=== PATIENT | female | born 1960 | race Caucasian/White ===

== ENCOUNTER 2019-04-01 19:17 | Emergency (ER) | payer OTHER ==
[2019-04-01 20:27] LABS: Absolute Lymphocytes (CBC) 2.3 K/uL (0.7-4.9); Basophils % 0.6 % (0-1.3); Eosinophils % 2.1 % (0-4.4); Hematocrit 46.4 % (36.0-45.0); Lymphocytes % 22.6 % (15.3-44.8); MPV 9.2 fL (7.6-11.3); Monocytes % 7.2 % (3.3-12.3); RBC Red Blood Cell Count 4.86 M/uL (3.86-4.86)
[2019-04-01 20:30] LABS: Urine Blood NEGATIVE (NEG); Urine Glucose NEGATIVE (NEG); Urine Protein 2+ (NEG); Urine Specific Gravity >1.030 (1.005-1.030)
[2019-04-01] MEDS ORDERED: ASPIRIN 81 MG CHEWABLE TABLET ONE (20:31)
[2019-04-01] MEDS ORDERED: FENTANYL CITR 100 MCG/2 ML ONE (20:32)
[2019-04-01 20:35] LABS: Protime INR 0.9
[2019-04-01 20:43] LABS: Urine Bacteria <20 /HPF (<20); Urine RBC <5 /HPF (NONE SEEN)
[2019-04-01 20:44] LABS: Calcium Oxalate Crystals- Ur MANY (NONE SEEN); Urine Culture Reflex Order NOT NEEDED; Urine Mucus 2+ /HPF (NONE SEEN)
[2019-04-01 20:49] LABS: ALT/SGPT 22 U/L (12-78); AST/SGOT 9 U/L (15-37); Albumin 3.6 g/dL (3.4-5.0); Alkaline Phosphatase 84 U/L (45-117); BUN Blood Urea Nitrogen 13 mg/dL (7-18); Bicarbonate 30 mmol/L (21-32); Bilirubin Direct < 0.1 mg/dL (0-0.2); Bilirubin Total 0.3 mg/dL (0.2-1.0); Glucose Level 184 mg/dL (74-106); Lipase 67 U/L (73-393); Magnesium 2.2 mg/dL (1.8-2.4); NT PRO-BNP 193 pg/mL (<125); Potassium 3.6 mmol/L (3.5-5.1); Protein, Total 6.7 g/dL (6.4-8.2); Sodium Level 141 mmol/L (136-145); Troponin (Emerg Dept Use Only) < 0.02 ng/mL (0.0-0.045)
--- NOTE | 2019-04-01 22:23 | ER ---
Nurse's Notes [facility] Name: Sushma Guy Age: 58 yrs Sex: Female : 1960 Arrival Date: 04/01/2019 Time: 19:19 Bed 28 Private MD: Piyush Abreu Diagnosis: Dehydration;Upper abdominal pain, unspecified Presentation: 04/01 19:30 Presenting complaint: Patient states: "I am having abdominal pain. I am pretty sure it jd3 is my gal bladder. I had a problem with it in the past, but I never followed up with a doctor because it started to feel better.". Transition of care: patient was not received from another setting of care. Onset of symptoms was April 01, 2019. Risk Assessment: Do you want to hurt yourself or someone else? Patient reports no desire to harm self or others. Initial Sepsis Screen: Does the patient meet any 2 criteria? No. Patient's initial sepsis screen is negative. Does the patient have a suspected source of infection? No. Patient's initial sepsis screen is negative. Care prior to arrival: None. 19:30 Method Of Arrival: Ambulatory jd3 19:30 Acuity: YARITZA 3 jd3 Historical: - Allergies: 19:36 No Known Allergies; jd3 - Home Meds: 19:36 Metoprolol Tartrate Oral [Active]; Lyrica oral oral [Active]; hydrocodone [Active]; jd3 Tramadol Oral [Active]; citalopram oral [Active]; - PMHx: 19:36 Rheumatoid Arthritis; Hypertension; heart problem; COPD; jd3 - PSHx: 19:36 triple laminectomy; jd3 - Immunization history:: Adult Immunizations up to date. - Social history:: Smoking status: Patient uses tobacco products, smokes three packs cigarettes per day. - Ebola Screening: : Patient negative for fever greater than or equal to 101.5 degrees Fahrenheit, and additional compatible Ebola Virus Disease symptoms. Screenin:45 Abuse screen: Denies threats or abuse. Denies injuries from another. Nutritional ca1 screening: No deficits noted. Tuberculosis screening: No symptoms or risk factors identified. Fall Risk IV access (20 points). Assessment: 19:45 General: Appears in no apparent distress. comfortable, Behavior is calm, cooperative, ca1 appropriate for age. Pain: Complains of pain in posterior aspect of right lateral abdomen, anterior aspect of right lateral abdomen and right upper quadrant Pain does not radiate. Pain currently is 7 out of 10 on a pain scale. Pain began 6-8 months ago. Worst for the past month and this past 4 days. Neuro: Level of Consciousness is awake, alert, obeys commands, Oriented to person, place, time, situation. Cardiovascular: Heart tones S1 S2 present Capillary refill < 3 seconds Patient's skin is warm and dry. Pulses are all present. Respiratory: Airway is patent Respiratory effort is even, unlabored, Respiratory pattern is regular, symmetrical, Breath sounds are clear bilaterally. GI: Abdomen is round non-distended, Bowel sounds present X 4 quads. Abdomen is tender to palpation in posterior aspect of right lateral abdomen, anterior aspect of right lateral abdomen and right upper quadrant Reports nausea, vomiting. : Reports difficulty urinating and decrease in the number of voids per day even with increase oral intake, as reported by pt. EENT: No deficits noted. No signs and/or symptoms were reported regarding the EENT system. Derm: Skin is intact, is healthy with good turgor, Skin is pink, warm \\T\\ dry. Musculoskeletal: Circulation, motion, and sensation intact. Capillary refill < 3 seconds, Range of motion: intact in all extremities. 20:39 Reassessment: Patient appears in no apparent distress at this time. Patient and/or ca1 family updated on plan of care and expected duration. Pain level reassessed. Patient is alert, oriented x 3, equal unlabored respirations, skin warm/dry/pink. 21:17 Reassessment: Patient is alert, oriented x 3, equal unlabored respirations, skin bb warm/dry/pink. pt returned from CT scan, is resting quietly, no complaints, awaiting results. 22:04 Reassessment: pt appears to be sleeping, eyes closed, resp unlabored, arouses easily bb awaiting CT results. 22:46 Reassessment: Patient is alert, oriented x 3, equal unlabored respirations, skin bb warm/dry/pink. pt verbalized understanding of and agrees to plan of care discharge instructions given pt ambulated with steady gait to exit. Patient states feeling better. Vital Signs: 19:36 BP 131 / 64; Pulse 90; Resp 17 S; Temp 98.2(O); Pulse Ox 99% on R/A; Weight 71.67 kg jd3 (R); Height 5 ft. 10 in. (177.80 cm) (R); Pain 8/10; 20:39 BP 126 / 71; Pulse 75; Resp 18 S; Pulse Ox 97% on R/A; ca1 22:04 BP 108 / 76; Pulse 75; Resp 19 S; Pulse Ox 97% on R/A; bb 22:47 BP 108 / 75; Pulse 73; Resp 16 S; Temp 98.2(O); Pulse Ox 100% on R/A; bb 19:36 Body Mass Index 22.67 (71.67 kg, 177.80 cm) jd3 ED Course: 19:19 Patient arrived in ED. es 19:19 Piyush Abreu MD is Private Physician. es 19:24 [facility]op[facility] F[facility]C [facility]. snw 19:24 Joanna French MD is Attending Physician. snw 19:32 Triage completed. jd3 19:36 Arm band placed on. jd3 19:45 Patient has correct armband on for positive identification. Placed in gown. Bed in low ca1 position. Call light in reach. Side rails up X 1. potline monitor on. Pulse ox on. NIBP on. Warm blanket given. 20:00 No provider procedures requiring assistance completed. Inserted saline lock: 20 gauge ca1 in left antecubital area, using aseptic technique. Blood collected. 20:14 Regine Prado, RN is Primary Nurse. ca1 20:42 IV discontinued, intact, bleeding controlled, No redness/swelling at site. Pressure bb dressing applied. 20:[address] nj 21:06 CT completed. Patient tolerated procedure well. Patient moved back from PR. nj 21:27 CT Chest For PE Angio In Process Unspecified. EDMS 22:21 Piyush Abreu MD is Referral Physician. snw Administered Medications: 20:10 Drug: fentaNYL (PF) 50 mcg Route: IVP; Site: left antecubital; ca1 21:18 Follow up: Response: Pain is decreased bb 20:10 Drug: Aspirin Chewable Tablet 324 mg Route: PO; ca1 21:18 Follow up: Response: No adverse reaction bb Outcome: 22:22 Discharge ordered by . snw 22:48 Discharged to home ambulatory. bb 22:48 Condition: stable 22:48 Discharge instructions given to patient, Instructed on discharge instructions, follow up and referral plans. medication usage, Demonstrated understanding of instructions, follow-up care, medications, Prescriptions given X 2. 22:49 Patient left the ED. bb Signatures: Dispatcher [employer] EDMS Mei Chopra, ASSOCIATE MERCHANDISE PLANNER-C ASSOCIATE MERCHANDISE PLANNER-Csnw Jessa Castrejon Brenda RN RN Troy Vogt Jonathon, RN RN jd3 Regine Prado RN RN ca1
--- NOTE | 2019-04-01 22:24 | EDPHYS ---
Physician Documentation [facility] Name: Sushma Guy Age: 58 yrs Sex: Female : 1960 Arrival Date: 04/01/2019 Time: 19:19 Bed 28 Private MD: Piyush Abreu ED Physician Joanna French HPI: 04/01 19:42 This 58 yrs old Female presents to ER via Ambulatory with complaints of snw Nausea, Flank Pain, Abdominal Pain. 19:42 The patient presents with abdominal pain in the right upper quadrant. Onset: The snw symptoms/episode began/occurred gradually, 8 month(s) ago, and became persistent. The symptoms radiate to right lower anterior ribs. Associated signs and symptoms: Pertinent positives: nausea. The symptoms are described as constant, shooting, stabbing. Severity of pain: At its worst the pain was severe. It is unknown whether or not the patient has had similar symptoms in the past. The patient has not recently seen a physician, the patient's primary care provider is Dr. Abreu. pt states she is a 3ppd smoker. Historical: - Allergies: 19:36 No Known Allergies; jd3 - Home Meds: 19:36 Metoprolol Tartrate Oral [Active]; Lyrica oral oral [Active]; hydrocodone [Active]; jd3 Tramadol Oral [Active]; citalopram oral [Active]; - PMHx: 19:36 Rheumatoid Arthritis; Hypertension; heart problem; COPD; jd3 - PSHx: 19:36 triple laminectomy; jd3 - Immunization history:: Adult Immunizations up to date. - Social history:: Smoking status: Patient uses tobacco products, smokes three packs cigarettes per day. - Ebola Screening: : Patient negative for fever greater than or equal to 101.5 degrees Fahrenheit, and additional compatible Ebola Virus Disease symptoms. ROS: 19:40 Constitutional: Negative for fever, chills, and weight loss, Eyes: Negative for injury, snw pain, redness, and discharge, ENT: Negative for injury, pain, and discharge, Neck: Negative for injury, pain, and swelling, Cardiovascular: Negative for chest pain, palpitations, and edema, Back: Negative for injury and pain, : Negative for injury, bleeding, discharge, and swelling, MS/Extremity: Negative for injury and deformity, Skin: Negative for injury, rash, and discoloration, Neuro: Negative for headache, weakness, numbness, tingling, and seizure. 19:40 Respiratory: Positive for pain to lower right ribs. 19:40 Abdomen/GI: Positive for pain to upper right abd. Exam: 19:39 Constitutional: This is a well developed, well nourished patient who is awake, alert, snw and in no acute distress. Head/Face: Normocephalic, atraumatic. Eyes: Pupils equal round and reactive to light, extra-ocular motions intact. Lids and lashes normal. Conjunctiva and sclera are non-icteric and not injected. Cornea within normal limits. Periorbital areas with no swelling, redness, or edema. ENT: Nares patent. No nasal discharge, no septal abnormalities noted. Tympanic membranes are normal and external auditory canals are clear. Oropharynx with no redness, swelling, or masses, exudates, or evidence of obstruction, uvula midline. Mucous membranes moist. Neck: Trachea midline, no thyromegaly or masses palpated, and no cervical lymphadenopathy. Supple, full range of motion without nuchal rigidity, or vertebral point tenderness. No Meningismus. Chest/axilla: Normal chest wall appearance and motion. Nontender with no deformity. No lesions are appreciated. Cardiovascular: Regular rate and rhythm with a normal S1 and S2. No gallops, murmurs, or rubs. Normal PMI, no JVD. No pulse deficits. Respiratory: Lungs have equal breath sounds bilaterally, clear to auscultation and percussion. No rales, rhonchi or wheezes noted. No increased work of breathing, no retractions or nasal flaring. Back: No spinal tenderness. No costovertebral tenderness. Full range of motion. Skin: Warm, dry with normal turgor. Normal color with no rashes, no lesions, and no evidence of cellulitis. MS/ Extremity: Pulses equal, no cyanosis. Neurovascular intact. Full, normal range of motion. Neuro: Awake and alert, GCS 15, oriented to person, place, time, and situation. Cranial nerves II-XII grossly intact. Motor strength 5/5 in all extremities. Sensory grossly intact. Cerebellar exam normal. Normal gait. Psych: Awake, alert, with orientation to person, place and time. Behavior, mood, and affect are within normal limits. 19:39 Abdomen/GI: Inspection: abdomen appears normal, Bowel sounds: normal, Palpation: moderate abdominal tenderness, severe abdominal tenderness, in the right upper quadrant. Vital Signs: 19:36 BP 131 / 64; Pulse 90; Resp 17 S; Temp 98.2(O); Pulse Ox 99% on R/A; Weight 71.67 kg jd3 (R); Height 5 ft. 10 in. (177.80 cm) (R); Pain 8/10; 20:39 BP 126 / 71; Pulse 75; Resp 18 S; Pulse Ox 97% on R/A; ca1 22:04 BP 108 / 76; Pulse 75; Resp 19 S; Pulse Ox 97% on R/A; bb 22:47 BP 108 / 75; Pulse 73; Resp 16 S; Temp 98.2(O); Pulse Ox 100% on R/A; bb 19:36 Body Mass Index 22.67 (71.67 kg, 177.80 cm) jd3 MDM: 19:24 Patient medically screened. snw 22:35 Data reviewed: vital signs, nurses notes. Data interpreted: Pulse oximetry: on room air snw is 97 %. Interpretation: normal. Counseling: I had a detailed discussion with the patient and/or guardian regarding: the historical points, exam findings, and any diagnostic results supporting the discharge/admit diagnosis, lab results, radiology results, the need for outpatient follow up, to return to the emergency department if symptoms worsen or persist or if there are any questions or concerns that arise at home. Special discussion: Based on the history and exam findings, there is no indication for further emergent testing or inpatient evaluation. I discussed with the patient/guardian the need to see the orthopedic surgeon for further evaluation of the symptoms. I discussed with the patient/guardian the need to see the primary care provider for further evaluation of the symptoms. 04/01 19:25 Order name: Urine Culture snw 04/01 19:25 Order name: Urine Microscopic Only; Complete Time: 21:02 snw 04/01 19:39 Order name: Basic Metabolic Panel; Complete Time: 21:02 snw 04/01 19:39 Order name: CBC with Diff; Complete Time: 20:30 snw 04/01 19:39 Order name: LFT's; Complete Time: 21:02 snw 04/01 19:39 Order name: Magnesium; Complete Time: 21:02 snw 04/01 19:39 Order name: NT PRO-BNP; Complete Time: 21:02 snw 04/01 19:39 Order name: PT-INR; Complete Time: 20:44 snw 04/01 19:39 Order name: Troponin (emerg Dept Use Only); Complete Time: 21:02 snw 04/01 19:39 Order name: CT Chest For PE Angio snw 04/01 19:40 Order name: Lipase; Complete Time: 21:02 snw 04/01 20:14 Order name: Urine Dipstick--Ancillary (enter results); Complete Time: 20:31 ar5 04/01 19:25 Order name: Urine Dipstick-Ancillary (obtain specimen); Complete Time: 20:31 snw 04/01 19:39 Order name: EKG; Complete Time: 19:41 snw 04/01 19:39 Order name: Cardiac monitoring; Complete Time: 20:31 snw 04/01 19:39 Order name: EKG - Nurse/Tech; Complete Time: 20:31 snw 04/01 19:39 Order name: IV Saline Lock; Complete Time: 20:31 snw 04/01 19:39 Order name: Labs collected and sent; Complete Time: 20:31 snw 04/01 19:39 Order name: O2 Per Protocol; Complete Time: 20:31 snw 04/01 19:39 Order name: O2 Sat Monitoring; Complete Time: 20:31 snw Administered Medications: 20:10 Drug: fentaNYL (PF) 50 mcg Route: IVP; Site: left antecubital; ca1 21:18 Follow up: Response: Pain is decreased bb 20:10 Drug: Aspirin Chewable Tablet 324 mg Route: PO; ca1 21:18 Follow up: Response: No adverse reaction bb Disposition: 04/02 03:01 Co-signature as Attending Physician, Joanna French MD. ma2 Disposition: 04/01/19 22:22 Discharged to Home. Impression: Dehydration, Upper abdominal pain, unspecified. - Condition is Stable. - Discharge Instructions: Abdominal Pain, Adult, Dehydration, Adult, Fat and Cholesterol Restricted Diet, Steps to Quit Smoking, Smoking Hazards, Rehydration, Adult. - Prescriptions for Bentyl 20 mg Oral Tablet - take 1 tablet by ORAL route every 6 hours As needed; 20 tablet. Diclofenac Sodium 75 mg Oral Tablet Sustained Release - take 1 tablet by ORAL route 2 times per day; 30 tablet. - Medication Reconciliation Form, Thank You Letter, Antibiotic Education, Prescription Opioid Use form. - Follow up: Piyush Abreu MD; When: 2 - 3 days; Reason: Recheck today's complaints, Continuance of care, Re-evaluation by your physician. Follow up: Emergency Department; When: As needed; Reason: Worsening of condition. Signatures: Dispatcher [employer] EDMS Mei Chopra, RICKI-C VASCULAR TECHNOLOGIST SONOGRAPHER-Csnw Fransisca Downing RN RN bb Sarath Beaver RN RN jd3 Joanna French MD MD ma2 Regine Prado RN RN ca1 Corrections: (The following items were deleted from the chart) 04/01 22:49 22:22 04/01/2019 22:22 Discharged to Home. Impression: Dehydration; Upper abdominal bb pain, unspecified. Condition is Stable. Forms are Medication Reconciliation Form, Thank You Letter, Antibiotic Education, Prescription Opioid Use. Follow up: Piyush Abreu; When: 2 - 3 days; Reason: Recheck today's complaints, Continuance of care, Re-evaluation by your physician. Follow up: Emergency Department; When: As needed; Reason: Worsening of condition. snw
--- NOTE | 2019-04-02 07:46 | EKG ---
Test Date: 2019-04-01 Test Time: 20:04:43 Web Database Developer: ANISA MEASUREMENT RESULTS: Intervals: Rate: 76 SD: 172 QRSD: 76 QT: 398 QTc: 447 [place]: P: 77 SD: 172 QRS: 78 T: 69 INTERPRETIVE STATEMENTS: Normal sinus rhythm Normal ECG Compared to ECG 11/02/2010 13:15:48 No significant changes Electronically Signed On 04-02-19 07:45:53 CDT by Gerson Gutierrez
--- NOTE | 2019-04-04 13:43 | RAD REPORT ---
EXAM DESCRIPTION: CT - Chest For Pe Angio - 04/01/2019 9:51 pm CLINICAL HISTORY: 58 years Female, Cough;Pain COMPARISON: None. TECHNIQUE: 3 mm axial images of the thorax were obtained along with coronal and sagittal reformatted images and right and left oblique reformatted images. This exam was performed according to our departmental dose-optimization program, which includes autom ated exposure control, adjustment of the mA and/or kV according to patient size and/or use of iterati ve reconstruction technique. INTRAVENOUS CONTRAST: Not documented. Please refer to medical record. FINDINGS: LUNG PAINTER: There is moderately severe centrilobular emphysematous lung disease. There are no active infiltrates. There is no pneumothorax. MEDIASTINAL STRUCTURES: There is no evidence of aortic aneurysm or dissection. There is no significant pericardial effusion. There is no adenopathy. PULMONARY ARTERIES: No evidence of pulmonary embolus. PLEURAL SPACE: Unremarkable. UPPER ABDOMEN: Unremarkable. AXILLAE: No adenopathy. Note is made of bilateral breast implants which demonstrate capsular calcifi cations bilaterally. BONY STRUCTURES: Unremarkable. IMPRESSION: 1. No evidence of pulmonary embolus. 2. Emphysematous lung disease. Electronically signed by: Judd Valero MD 04/01/2019 9:34 PM CDT Due to temporary technical issues with the PACS/Fluency reporting system, reports are being signed by the in house radiologist as a courtesy to ensure prompt reporting. The interpreting radiologist is f ully responsible for the content of the report.
== END 2019-04-01 22:49 | disposition home or self-care (01) ==
LOC: ER 19:17
DX: R10.11 Right upper quadrant pain (principal); E86.0 Dehydration; F17.210 Nicotine dependence, cigarettes, uncomplicated; I10 Essential (primary) hypertension; J44.9 Chronic obstructive pulmonary disease, unspecified; M06.9 Rheumatoid arthritis, unspecified
CPT/HCPCS: 36415; 71275; 80048; 80076; 81003; 81015; 83690; 83735; 83880; 84484; 85025; 85610; 87086; 87088; 93005; 96374; 99285; J3010; Q9967

== ENCOUNTER 2020-02-12 19:41 | Emergency (ER) | payer OTHER ==
--- OUTSIDE RECORDS SUMMARY | 2020-02-12 19:43 | XMS REPORT | Continuity of Care Document ---
:1960 Author Organization [facility] Address [address] [place] [address] Allergies, Adverse Reactions, Alerts No known allergies. Medications No known medications. Problems No problem information available. Procedures Procedure Date Performed Status X-ray of abdomen, single view October 30, 2019 completed Computed tomography of abdomen and pelvis with contrast Hema [id number] completed Relevant Diagnostic Tests and/or Laboratory Data Laboratory Results Test Date/Time Result Interpretation Reference Result Perfo rming Range Comment Site White Blood Count October 8.8 4.0-11.5 [facility] , 104 2019 5:22pm [place] [address] Red Blood Count [place] 4.83 3.80-5.20 [facility] , 104 2019 5:22pm [place] [address] Hemoglobin [place] 15.0 10.5-15.7 [facility], 104 2019 5:22pm [place] [address] Hematocrit [place] 45.8 34.0-50.0 [facility], 104 2019 5:22pm [place] [address] Mean Corpuscular [place] 94.8 86-100 [facility], 104 Volume 2019 5:22pm [place] [address] Mean Corpuscular [place] 31.1 26.2-33.4 [facility], 104 Hemoglobin 2019 5:22pm [place] [address] Mean Corpuscular [place] 32.8 30-34 [facility], 104 Hemoglobin Concent 2019 5:22pm [place] [address] Red Cell [place] 13.2 12.0-15.5 [facility], 104 Distribution Width 2019 5:22pm [place] [address] Platelet Count October 294 165-450 [facility], 104 2019 5:22pm [place] [address] Mean Platelet [place] 10.0 9.4-12.6 [facility], [address] [facility] [address] Volume 2019 5:22pm [place] [address] Neutrophils (%) [place] 50.2 44.4-80.1 [facility] , [address] [facility] (Auto) 2019 5:22pm [place] X [address] Immature [place] 0.3 0.0-0.4 [facility], [address] [facility] [address] Granulocyte % 2019 (Auto) 5:22pm [place] X [address] Lymphocytes (%) October 33.9 10.0-50.0 [facility] , [address] [facility] (Auto) 2019 5:22pm [place] X [address] Monocytes (%) October 12.3 3.6-12.0 [facility], [address] [facility] (Auto) 2019 5:22pm [place] X [address] Eosinophils (%) October 2.3 0.0-5.4 [facility] , [address] [facility] (Auto) 2019 5:22pm [place] X [address] Basophils (%) October 1.0 0.1-1.2 [facility], [address] [facility] (Auto) 2019 5:22pm [place] X [address] Neutrophils # [place] 4.42 1.56-6.13 [facility], [address] [facility] (Auto) 2019 5:22pm [place] X [address] Absolute Immature [place] 0.0 0.0-0.03 [facility], [address] [facility] Granulocyte (auto 2019 5:22pm [place] X [address] Lymphocytes # [place] 3.0 1.18-3.74 [facility], [address] [facility] (Auto) 2019 5:22pm [place] X [address] Monocytes # (Auto) [place] 1.08 0.24-0.86 [facility], [address] [facility] 2019 5:22pm [place] [address] Eosinophils # [place] 0.20 0.04-0.36 [facility], [address] [facility] (Auto) 2019 5:22pm [place] X [address] Basophils # (Auto) [place] 0.09 0.01-0.08 [facility], [address] [facility] 2019 5:22pm [place] [address] Nucleated Red [place] 0 0-0.2 [facility], 104 Blood Cells % 2019 5:22pm [place] [address] Nucleated Red [place] 0 0 [facility], 104 Blood Cells # 2019 5:22pm [place] [address] Urine Color October YELLOW [facility], 10 4 2019 5:55pm [place] [address] Urine Appearance October CLEAR CLEAR [facility], 104 2019 5:55pm [place] X [address] Urine Glucose (UA) [place] NEGATIVE NEGATIVE [facility], 104 2019 5:55pm [place] [address] Urine Bilirubin October SMALL NEGATIVE [facility] , 104 2019 5:55pm [place] [address] Urine Ketones October NEGATIVE NEGATIVE [facility], 104 2019 5:55pm [place] [address] Urine Specific [place] >= 1.030 1.003-1.03 [facility] , 104 2019 0 5:55pm [place] X [address] Urine Blood [place] NEGATIVE NEGATIVE [facility], 10 4 2019 5:55pm [place] [address] Urine pH October 5.000 5-9 [facility], 104 2019 5:55pm [place] [address] Urine Protein October TRACE NEGATIVE [facility], 104 2019 5:55pm [place] [address] Urine Urobilinogen October 0.2 0.2-1.0 [facility], 104 2019 5:55pm [place] [address] Urine Nitrate October NEGATIVE NEGATIVE [facility], 104 2019 5:55pm [place] X [address] Urine Leukocyte October NEGATIVE NEGATIVE [facility] , 104 Esterase 2019 5:55pm [place] [address] Urine RBC October 0-3 0-5 [facility], 2019 5:55pm [place] [address] Urine WBC October 0-5 0-5 [facility], 2019 5:55pm [place] X [address] Urine Epithelial October 0-5 0-5 [facility], 104 2019 5:55pm [place] [address] Urine Bacteria October None None [facility], [address] 2019 Detected Detect 5:55pm [place] [address] Urine Culture October NO [facility], [address] Reflexed 2019 5:55pm [place] [address] Urine Crystals October Calcium None [facility], 104 2019 oxalate Detect 5:55pm 2+ [place] X [address] Random Glucose October 83 74-106 [facility], [address] 2019 5:22pm [place] [address] Blood Urea October 9 6-20 [facility], [address] Nitrogen 2019 5:22pm [place] [address] Serum Osmolality October 274 280-300 [facility] , [address] 2019 5:22pm [place] [address] Creatinine October 0.6 0.50-0.90 [facility], [address] 2019 5:22pm [place] [address] Glomerular [place] > 60.00 GFR RESULTS [facility], [address] ST Filtration Rate 2019 ARE Calc 5:22[place] [address] mL/min/1.73 m2.Normal GFR: >60mL/minMo derately decreased GFR: 30-59 mL/minSever harjinder decreased GFR: 15-29 mL/minKidne y Failure (or Dialysis): <15 mL/minThe calculated eGFR is not valid for patients younger than 18 years or older than 75 years. BUN/Creatinine October 15.0 - [facility], [address] Ratio 2019 5:22pm [place] [address] Sodium Level October 138 135-145 [facility], 1 04 2019 5:22pm [place] [address] Potassium Level October 3.8 3.5-5.2 [facility] , 104 2019 5:22pm [place] [address] Chloride Level October 100 98-108 [facility], 104 2019 5:22pm [place] [address] Carbon Dioxide October 28 -32 [facility], [address] Level 2019 5:22pm [place] [address] Anion Gap October 13.8 - [facility], 104 2019 5:22pm [place] [address] Calcium Level [place] 8.8 8.6-10.0 [facility], 104 2019 5:22pm [place] [address] Total Protein [place] 6.4 6.6-8.7 [facility], 104 2019 5:22pm [place] [address] Albumin [place] 4.1 3.5-5.2 [facility], 104 2019 5:22pm [place] [address] Globulin [place] 2.3 [facility], 104 2019 5:22pm [place] [address] Albumin/Globulin [place] 1.8 >1.0 [facility], 104 Ratio 2019 5:22pm [place] [address] Total Bilirubin October < 0.3 0.0-1.2 [facility] , 104 2019 5:22pm [place] [address] Aspartate Amino October 9 15-32 [facility] , [address] ST Transf (AST/SGOT) 2019 5:22pm [place] [address] Alanine October 8 0-33 [facility], [address] ST Aminotransferase 2019 (ALT/SGPT) 5:22pm [place] [address] Total Alkaline October 86 35-105 [facility], [address] Phosphatase 2019 5:22pm [place] X [address] Health Concerns No known health concerns documented Chief Complaint and Reason for Visit Chief Complaint Abdominal/GI/Nausea/Vomiting Reason for Visit [id number] Encounters Encounter Location(s) Arrival/Admit Date Discharge/Depart Date Provider(s) Departed [place] October 30, 2019 October 30, 2019 ALY POWERS Emergency Room [facility] 4:56pm 8:16pm MD Ctr Assessments No Assessments Information Available Functional Status No Functional Status information available Goals No Goals Information Available Immunizations No Immunization Information Available Mental Status No Mental Status Information Available Medical Equipment No Medical Equipment Information available Insurance Providers Guarantor Sushma Knox Address [address] [address] Contact Info. Home Phone: Payer Policy Id Coverage Id Subscriber's Subscriber Effective Expi ration Name Id Date Date [employer] [id number] Sushma Knox [id number] March [address] [facility] 2011 Plan of Treatment CALL MD FOR FOLLOW UP IN ABOUT 3 DAYS TO RE-EVALUATE ZOFRAN FOR NAUSEA AND VOMITING MOTRIN FOR PAIN Future Tests Future scheduled test information is unavailable Pending Tests Pending diagnostic test information is unavailable Future Visits Future appointment information is unavailable Referrals to Other Providers Reason for Referral Start Provider Provider Contact Provider Address Referral Date Information NATALIE TUTTLE Work Phone: [address] [facility] [address] [facility] [id number] Future Procedures Future procedure information is unavailable Future Medications Future medication information is unavailable Patient Instructions Viral Gastroenteritis, Adult Abdominal Pain, Adult, Wykm-ce-Ydud Social History Smoking Status Status Date of Observation Smokes tobacco daily (finding) October 30, 2019 5:03 pm Assigned Sex Female Vital Signs Vital Reading Result Collection Date/Time
--- OUTSIDE RECORDS SUMMARY | 2020-02-12 19:43 | XMS REPORT ---
:1960 Author Organization [facility] t Address [address] [place] [address] Dr. Gomez [address] [place] [id number] Care Team Providers Name Role Phone Unavailable Unavailable Unavailable Problems This patient has no known problems. Allergies, Adverse Reactions, Alerts This patient has no known allergies or adverse reactions. Medications This patient has no known medications.
[2020-02-12 20:23] LABS: Absolute Lymphocytes (CBC) 1.2 K/uL (0.7-4.9); Basophils % 0.5 % (0-1.3); Hematocrit 42.7 % (36.0-45.0); Lymphocytes % 10.4 % (15.3-44.8); MPV 9.1 fL (7.6-11.3); RBC Red Blood Cell Count 4.59 M/uL (3.86-4.86)
--- NOTE | 2020-02-12 20:34 | RAD REPORT ---
EXAM DESCRIPTION: RAD - Chest Single View - 02/12/2020 8:27 pm CLINICAL HISTORY: CHEST PAIN Chest pain. COMPARISON: CHEST PA AND LAT 2 VIEW dated 01/28/2008 FINDINGS: Portable technique limits examination quality. The lungs are grossly clear. The heart is normal in size. No displaced fractures. IMPRESSION: No acute intrathoracic process suspected.
[2020-02-12 20:42] LABS: ALT/SGPT 19 U/L (12-78); AST/SGOT 12 U/L (15-37); Albumin 3.5 g/dL (3.4-5.0); Alkaline Phosphatase 98 U/L (45-117); BUN Blood Urea Nitrogen 12 mg/dL (7-18); Bicarbonate 27 mmol/L (21-32); Bilirubin Direct < 0.1 mg/dL (0-0.2); Bilirubin Total 0.3 mg/dL (0.2-1.0); Glucose Level 127 mg/dL (74-106); Magnesium 2.1 mg/dL (1.8-2.4); NT PRO-BNP 213 pg/mL (<125); Protein, Total 6.9 g/dL (6.4-8.2); Sodium Level 142 mmol/L (136-145); Troponin (Emerg Dept Use Only) < 0.02 ng/mL (0.0-0.045)
--- NOTE | 2020-02-12 22:24 | ER ---
Nurse's Notes [facility] Name: Sushma Guy Age: 59 yrs Sex: Female : 1960 Arrival Date: 02/12/2020 Time: 19:43 Bed 13 Private MD: Diagnosis: Bronchitis, not specified as acute or chronic;Other diseases of upper respiratory tract;Other chest pain Presentation: 02/11 20:04 Chief complaint: Patient states: Dry cough, breathing difficulty, chest pain worsening lp1 the last 3-4 days; Treated for bronchitis 1 week ago with Azithromycin; [place] no results at this time; Unknown fever, states feeling chills. Coronavirus screen: Surgical mask placed on patient. Patient moved to private room, placed in contact and droplet isolation with eye protection until further assessment. Patient reports a cough. Patient reports shortness of breath or difficulty breathing. Patient reports a measured and/or subjective temperature greater than 100.4F. Patient denies travel on a cruise ship or to a country the [facility] currently lists as an affected area. Patient denies contact with known and/or suspected case of COVID-19. Ebola Screen: No symptoms or risks identified at this time. Initial Sepsis Screen: Does the patient meet any 2 criteria? No. Patient's initial sepsis screen is negative. Does the patient have a suspected source of infection? No. Patient's initial sepsis screen is negative. Risk Assessment: Do you want to hurt yourself or someone else? Patient reports no desire to harm self or others. Onset of symptoms was February 12, 2020. 20:04 Method Of Arrival: Ambulatory lp1 20:04 Acuity: YARITZA 3 lp1 02/12 09:11 Coronavirus screen: [facility] has been notified of ss person under investigation for COVID-19. PUI#: [id number]. Historical: - Allergies: 02/11 20:11 No Known Allergies; lp1 - Home Meds: 20:11 Metoprolol Tartrate Oral [Active]; citalopram oral [Active]; Hydrocodone [Active]; lp1 Lyrica Oral [Active]; Tramadol Oral [Active]; - PMHx: 20:11 COPD; heart problem; Hypertension; Rheumatoid Arthritis; lp1 - PSHx: 20:11 Triple laminectomy; lp1 - Immunization history:: Adult Immunizations up to date. - Social history:: Smoking status: Patient reports the use of cigarette tobacco products, smokes one pack cigarettes per day. Screenin:31 Abuse screen: Denies threats or abuse. Denies injuries from another. Nutritional rr5 screening: No deficits noted. Tuberculosis screening: No symptoms or risk factors identified. Fall Risk IV access (20 points). Total Mohamud Fall Scale indicates No Risk (0-24 pts). Assessment: 20:15 General: Appears in no apparent distress. comfortable, Behavior is calm, cooperative, rr5 appropriate for age. 20:15 Pain: Complains of pain in chest Pain does not radiate. Pain currently is 9 out of 10 rr5 on a pain scale. Quality of pain is described as aching, Pain began gradually, Is intermittent. Neuro: Level of Consciousness is awake, alert, obeys commands, Oriented to person, place, time, situation. Cardiovascular: Reports chest pain, Capillary refill < 3 seconds Patient's skin is warm and dry. Respiratory: Reports shortness of breath cough that is Airway is patent Respiratory effort is even, unlabored, Respiratory pattern is regular, symmetrical. GI: No signs and/or symptoms were reported involving the gastrointestinal system. : No signs and/or symptoms were reported regarding the genitourinary system. EENT: No signs and/or symptoms were reported regarding the EENT system. Derm: Skin is intact, is healthy with good turgor, Skin temperature is warm. Musculoskeletal: Circulation, motion, and sensation intact. Capillary refill < 3 seconds. 21:00 Reassessment: Patient appears in no apparent distress at this time. Patient is alert, rr5 oriented x 3, equal unlabored respirations, skin warm/dry/pink. awaiting for results. 22:10 Reassessment: Patient appears in no apparent distress at this time. Patient is alert, rr5 oriented x 3, equal unlabored respirations, skin warm/dry/pink. no complaints made awaiting for room assignment. 22:55 Reassessment: Patient appears in no apparent distress at this time. Patient is alert, rr5 oriented x 3, equal unlabored respirations, skin warm/dry/pink. hospitalist at bedside examining the patient. 02/12 00:00 Reassessment: Patient appears in no apparent distress at this time. Patient is alert, rr5 oriented x 3, equal unlabored respirations, skin warm/dry/pink. follow up to hospitalist for the admission orders. he replied thru phone talked to dr merrill, he talked to him for the plan of care. spoke to with verbal order repeat troponin now. patient is resting eyes closed breathing spontaneously at room air. no complaints made. 00:40 Reassessment: Patient appears in no apparent distress at this time. awaiting for rr5 troponin result. 01:56 Reassessment: Patient appears in no apparent distress at this time. Patient is alert, rr5 oriented x 3, equal unlabored respirations, skin warm/dry/pink. discharge instruction given and explained without complaints made. Vital Signs: 02/11 20:04 BP 153 / 77; Pulse 90; Resp 20; Temp 98.6(O); Pulse Ox 97% on R/A; Weight 69.85 kg (R); lp1 Height 5 ft. 4 in. (162.56 cm); Pain 9/10; 21:05 BP 138 / 75; Pulse 64; Resp 19; Pulse Ox 97% on R/A; rr5 22:00 BP 149 / 80; Pulse 60; Resp 18; Pulse Ox 96% ; rr5 22:42 BP 135 / 85; Pulse 61; Resp 20; Pulse Ox 97% ; rr5 0504 00:00 BP 141 / 89; Pulse 55; Resp 18; Temp 97.8; Pulse Ox 97% ; rr5 01:00 BP 131 / 89; Pulse 66; Resp 20; Pulse Ox 96% ; rr5 01:54 BP 136 / 75; Pulse 62; Resp 19; Temp 97.8; Pulse Ox 97% ; rr5 02/11 20:04 Body Mass Index 26.43 (69.85 kg, 162.56 cm) lp1 ED Course: 02/11 19:43 Patient arrived in ED. fj1 19:44 Constantino Merrill MD is Attending Physician. tw4 19:49 Mehdi Nickerson, GIN[place] is Primary Nurse. rr5 20:04 Arm band placed on. lp1 20:05 Patient has correct armband on for positive identification. Placed in gown. Bed in low rr5 position. Call light in reach. night monitor on. Pulse ox on. NIBP on. Warm blanket given. 20:10 Triage completed. lp1 20:12 Droplet isolation initiated. lp1 20:12 Patient maintains SpO2 saturation greater than 95% on room air. lp1 20:20 EKG done, by ED staff, reviewed by Constantino Merrill MD Flu and/or RSV swab sent to lab. rr5 Strep swab sent to lab. 20:27 XRAY Chest (1 view) In Process Unspecified. EDMS 20:30 covid 19. rr5 20:32 Initial lab(s) drawn, by me, sent to lab. Inserted saline lock: 20 gauge in right lt1 antecubital area, using aseptic technique. 22:22 Jeff Weller is Hospitalizing Provider. tw4 02/12 00:15 No provider procedures requiring assistance completed. Repeat lab(s) drawn. by me, sent rr5 to lab. 01:55 IV discontinued, intact, bleeding controlled, No redness/swelling at site. Pressure rr5 dressing applied. Administered Medications: No medications were administered Outcome: 02/11 22:23 Decision to Hospitalize by Provider. tw02/12 01:12 Discharge ordered by . tw4 01:55 Discharged to home ambulatory. rr5 01:55 Condition: stable 01:55 Discharge instructions given to patient, Instructed on discharge instructions, follow up and referral plans. medication usage, Demonstrated understanding of instructions, follow-up care, medications, Prescriptions given X 3. 01:58 Patient left the ED. rr5 Addendum: 02/14/2020 15:13 Addendum: Other pt notified of negative COVID-19 swab results. Pt advised to continue d m5 to monitor symptoms, to remain in isolation until fever free for 72 hours without medication and to return to the ED if symptoms worsen. Signatures: Dispatcher [employer] EDMT Gauri Read, GINNY RN dm5 Charley Frazier RN RN Kathy Grace RN RN lp1 Constantino Merrill MD MD tw4 Mehdi Nickerson RN RN rr5 Keyana Augustine lt1 Tru Roberts fj
--- NOTE | 2020-02-12 22:24 | EDPHYS ---
Physician Documentation [facility] Name: Sushma Guy Age: 59 yrs Sex: Female : 1960 Arrival Date: 02/12/2020 Time: 19:43 Bed 13 Private MD: ED Physician Constantino York HPI: 02/11 20:08 This 59 yrs old Female presents to ER via Unassigned with complaints of Chest tw4 Pain, Breathing Difficulty. 20:08 The patient or guardian reports chest pain that is located primarily in the anterior tw4 chest wall, left. Onset: 1 week(s) ago, and became worse 3 day(s) ago. The pain radiates to Associated signs and symptoms: The patient has no apparent associated signs or symptoms. The chest pain is described as dull. Duration: The patient or guardian reports a single episode. Modifying factors: The symptoms are alleviated by nothing. the symptoms are aggravated by nothing. The patient has not experienced similar symptoms in the past. 20:10 Severity of pain: At its worst the pain was moderate. tw4 Historical: - Allergies: 20:11 No Known Allergies; lp1 - Home Meds: 20:11 Metoprolol Tartrate Oral [Active]; citalopram oral [Active]; Hydrocodone [Active]; lp1 Lyrica Oral [Active]; Tramadol Oral [Active]; - PMHx: 20:11 COPD; heart problem; Hypertension; Rheumatoid Arthritis; lp1 - PSHx: 20:11 Triple laminectomy; lp1 - Immunization history:: Adult Immunizations up to date. - Social history:: Smoking status: Patient reports the use of cigarette tobacco products, smokes one pack cigarettes per day. ROS: 20:10 Constitutional: Negative for fever, chills, and weight loss, Eyes: Negative for injury, tw4 pain, redness, and discharge, Abdomen/GI: Negative for abdominal pain, nausea, vomiting, diarrhea, and constipation, Back: Negative for injury and pain, MS/Extremity: Negative for injury and deformity, Skin: Negative for injury, rash, and discoloration, Neuro: Negative for headache, weakness, numbness, tingling, and seizure. 20:10 Cardiovascular: Positive for chest pain. 20:10 Respiratory: Positive for cough, shortness of breath, wheezing. Exam: 20:10 Constitutional: This is a well developed, well nourished patient who is awake, alert, tw4 and in no acute distress. Head/Face: Normocephalic, atraumatic. Chest/axilla: Normal chest wall appearance and motion. Nontender with no deformity. No lesions are appreciated. Cardiovascular: Regular rate and rhythm with a normal S1 and S2. No gallops, murmurs, or rubs. Normal PMI, no JVD. No pulse deficits. Respiratory: Lungs have equal breath sounds bilaterally, clear to auscultation and percussion. No rales, rhonchi or wheezes noted. No increased work of breathing, no retractions or nasal flaring. Abdomen/GI: Soft, non-tender, with normal bowel sounds. No distension or tympany. No guarding or rebound. No evidence of tenderness throughout. Back: No spinal tenderness. No costovertebral tenderness. Full range of motion. MS/ Extremity: Pulses equal, no cyanosis. Neurovascular intact. Full, normal range of motion. Neuro: Awake and alert, GCS 15, oriented to person, place, time, and situation. Cranial nerves II-XII grossly intact. Motor strength 5/5 in all extremities. Sensory grossly intact. Cerebellar exam normal. Normal gait. 20:10 ECG was reviewed by the Attending Physician. Vital Signs: 20:04 BP 153 / 77; Pulse 90; Resp 20; Temp 98.6(O); Pulse Ox 97% on R/A; Weight 69.85 kg (R); lp1 Height 5 ft. 4 in. (162.56 cm); Pain 9/10; 21:05 BP 138 / 75; Pulse 64; Resp 19; Pulse Ox 97% on R/A; rr5 22:00 BP 149 / 80; Pulse 60; Resp 18; Pulse Ox 96% ; rr5 22:42 BP 135 / 85; Pulse 61; Resp 20; Pulse Ox 97% ; rr5 04 00:00 BP 141 / 89; Pulse 55; Resp 18; Temp 97.8; Pulse Ox 97% ; rr5 01:00 BP 131 / 89; Pulse 66; Resp 20; Pulse Ox 96% ; rr5 01:54 BP 136 / 75; Pulse 62; Resp 19; Temp 97.8; Pulse Ox 97% ; rr5 02/11 20:04 Body Mass Index 26.43 (69.85 kg, 162.56 cm) lp1 MDM: 02/11 19:48 Patient medically screened. 02/12 06:39 HEART Score: History: Moderately Suspicious (1), ECG: Normal (0), Age: > 45 and < 65 tw4 years (1), Risk Factors: No Risk Factors Known (0), Troponin: < or = 1 x Normal Limit (0), Total Score = 2. The patient was given aspirin in the Emergency Department. Data reviewed: vital signs, nurses notes. Data interpreted: Pulse oximetry: Interpretation: normal. Test interpretation: by ED physician or midlevel provider: ECG, plain radiologic studies. Counseling: I had a detailed discussion with the patient and/or guardian regarding: the historical points, exam findings, and any diagnostic results supporting the discharge/admit diagnosis. Physician consultation: Jeff Weller regarding patient's condition, need to come to ED to see patient, and will see patient in ED. Special discussion: Based on the patient's history, exam, and Dx evaluation, there is no indication for emergent intervention or inpatient Tx. It is understood by the patient/guardian that if the Sx's persist or worsen they need to return immediately for re-evaluation. I discussed with the patient/guardian in detail that at this point there is no indication for admission to the hospital. It is understood, however, that if the symptoms persist or worsen the patient needs to return immediately for re-evaluation. 02/11 19:44 Order name: Basic Metabolic Panel; Complete Time: 22:20 02/11 22:20 Interpretation: Normal except: CL 110; GLUC 127. 02/11 19:44 Order name: CBC with Diff; Complete Time: 20:38 02/11 20:38 Interpretation: Normal except: WBC 11.3; NEUT A 9.3; LYM% 10.4; ARIELLE% 82.0. 02/11 19:44 Order name: LFT's; Complete Time: 22:20 02/11 22:21 Interpretation: AST 12; A/G 1.0. 02/11 19:44 Order name: Magnesium; Complete Time: 22:20 02/11 22:21 Interpretation: Within normal limits: MG 2.1. 02/11 19:44 Order name: NT PRO-BNP; Complete Time: 22:20 [facility] 02/11 22:21 Interpretation: Normal except: NT PRO-BNP 213. 4 02/11 19:44 Order name: PT-INR; Complete Time: 22:20 [facility] 02/11 22:21 Interpretation: Within normal limits: PT 11.8. [facility] 02/11 19:44 Order name: Troponin (emerg Dept Use Only); Complete Time: 22:20 [facility] 02/11 22:21 Interpretation: Within normal limits: TROPED < 0.02. [facility] 02/11 19:44 Order name: XRAY Chest (1 view); Complete Time: 20:38 [facility] 02/11 19:55 Order name: COVID-19 [facility] 02/11 19:55 Order name: Flu; Complete Time: 22:20 [facility] 02/11 22:21 Interpretation: Within normal limits. [facility] 02/11 19:55 Order name: Strep; Complete Time: 22:20 [facility] 02/11 20:43 Order name: Throat Culture [facility] 02/12 00:11 Order name: Troponin (emerg Dept Use Only) 5 02/12 00:11 Order name: Troponin (emerg Dept Use Only) [facility] 02/11 19:44 Order name: EKG; Complete Time: 19:45 [facility] 02/11 19:44 Order name: Cardiac monitoring; Complete Time: 20:30 [facility] 02/11 19:44 Order name: EKG - Nurse/Tech; Complete Time: 20:30 [facility] 02/11 19:44 Order name: IV Saline Lock; Complete Time: 20:30 [facility] 02/11 19:44 Order name: Labs collected and sent; Complete Time: 20:30 [facility] 02/11 19:44 Order name: O2 Per Protocol; Complete Time: 20:30 [facility] 02/11 19:44 Order name: O2 Sat Monitoring; Complete Time: 20:30 [facility] 02/11 19:55 Order name: Droplet/Contact Precautions; Complete Time: 20:29 tw4 02/11 19:55 Order name: Labs collected and sent; Complete Time: 20:29 [facility] 02/11 19:55 Order name: O2 Per Protocol; Complete Time: 20:30 tw4 EC/03 20:10 Rate is 81 beats/min. Rhythm is regular. QRS [place] is Normal. [place] interval is normal. QRS tw4 interval is normal. QT interval is prolonged at 74 msec. No Q waves. T waves are Normal. No ST changes noted. Clinical impression: NSR w/ Non-specific ST/T Changes. Interpreted by me. Reviewed by me. Administered Medications: No medications were administered Disposition: 02/13/20 01:12 Discharged to Home. Impression: Bronchitis, not specified as acute or chronic, Other diseases of upper respiratory tract, Other chest pain. - Condition is Stable. - Discharge Instructions: Acute Bronchitis, Adult, Nonspecific Chest Pain, Upper Respiratory Infection, Adult, Cough, Adult. - Prescriptions for Tessalon Perles 100 mg Oral Capsule - take 1 capsule by ORAL route every 8 hours As needed; 15 capsule. Albuterol Sulfate 90 mcg/actuation - inhale 1-2 puff by INHALATION route every 4-6 hours; 1 Inhaler. Guaifenesin AC 10- 100 mg/5 mL Oral Liquid - take 10 milliliter by ORAL route every 4 hours As needed; 240 milliliter. - Medication Reconciliation Form, Thank You Letter, Antibiotic Education, Prescription Opioid Use form. - Follow up: Private Physician; When: Upon discharge from the Emergency Department; Reason: Recheck today's complaints, Continuance of care, Re-evaluation by your physician. - Problem is new. - Symptoms have improved. Signatures: Dispatcher [employer] EDMS Kathy Grace RN RN lp1 Leilani Green RN RN Constantino Olivarez MD MD tw4 Mehdi Nickerson, RN RN rr5 Corrections: (The following items were deleted from the chart) 02/12 00:46 02/11 22:23 Hospitalization Ordered by Jeff Weller for Observation. Preliminary cg diagnosis is Other chest pain; Other specified diseases of upper respiratory tract; Acute upper respiratory infection, unspecified. Bed requested for Telemetry/MedSurg (observation). Status is Observation. Condition is Stable. Problem is new. Symptoms have improved. tw4 02/12 01:11 00:46 02/12/2020 22:23 Hospitalization Ordered by Jeff Weller for Observation. tw4 Preliminary diagnosis is Other chest pain; Other specified diseases of upper respiratory tract; Acute upper respiratory infection, unspecified. Bed requested for [facility] ER HOLD. Status is Observation. Condition is Stable. Problem is new. Symptoms have improved. 01:58 01:12 02/13/2020 01:12 Discharged to Home. Impression: Bronchitis, not specified as rr5 acute or chronic; Other diseases of upper respiratory tract; Other chest pain. Condition is Stable. Forms are Medication Reconciliation Form, Thank You Letter, Antibiotic Education, Prescription Opioid Use. Follow up: Private Physician; When: Upon discharge from the Emergency Department; Reason: Recheck today's complaints, Continuance of care, Re-evaluation by your physician. Problem is new. Symptoms have improved. tw4
--- NOTE | 2020-02-12 23:23 | P.CNS ---
Date of Consult: 02/12/20 59-year-old woman with a history COPD, and no one cigarette smoker presented to the ED with a complaint of chest. Her chest pain was preceded by a 3 day history of coughing spells. Test for Covid 19 was done 2 days ago and the result is pending. She described both anterior and posterior chest pain, worse with deep breathing and with coughing, not related to exertion and no relieving factors. Her chest x-ray shows no acute disease. EKG demonstrates sinus rhythm with no ST-T changes. Initial troponin is negative. She has mild leukocytosis. Noted patient has a history intermittent tachycardia for which she is taking metoprolol. No history of coronary artery disease. She is not requiring oxygen. She has good oxygen saturation on room air. She is afebrile Her chest pain appeared to be of noncardiac origin. Her heart score is 2. I suggest checking another troponin and if negative, could discharge patient for outpatient follow up. She can return to the ED if her chest pain get worse or she develops shortness of breath.
[2020-02-13 02:08] VITALS: TEMP 97.8
[2020-02-13 02:11] VITALS: BP 136/75; O2SAT 97
--- NOTE | 2020-02-13 10:50 | EKG ---
Test Date: 2020-02-12 Test Time: 20:00:15 Prevention Coordinator: MELISSA MEASUREMENT RESULTS: Intervals: Rate: 81 TX: 160 QRSD: 74 QT: 434 QTc: 504 [place]: P: 70 TX: 160 QRS: 57 T: 63 INTERPRETIVE STATEMENTS: Normal sinus rhythm Prolonged QT Abnormal ECG Compared to ECG 04/01/2019 20:04:43 Prolonged QT interval now present Electronically Signed On 02-13-20 10:49:05 CDT by Gerson Gutierrez
== END 2020-02-13 01:58 | disposition home or self-care (01) ==
LOC: ER 19:41
DX: J40 Bronchitis, not specified as acute or chronic (principal); Z20.828 Contact with and (suspected) exposure to other viral communicable diseases; J98.8 Other specified respiratory disorders; I10 Essential (primary) hypertension; F17.210 Nicotine dependence, cigarettes, uncomplicated; J44.9 Chronic obstructive pulmonary disease, unspecified
CPT/HCPCS: 93005; 87070; 85025; 80048; 36415; 83735; 85610; 80076; 87081; 84484 ×2; 83880; 87804 ×2; 71045; U0001; 99285